=== PATIENT | female | born 1960 | race Caucasian/White ===

== ENCOUNTER 2017-04-04 07:46 | Day surgery (SDC) | payer BC ==
--- NOTE | 2017-03-21 09:24 | HP ---
DATE OF ADMISSION: 04/04/2017 HISTORY OF PRESENT ILLNESS: This is the 2nd orthopedic outpatient admission for surgery for this 56-year-old female who has been brought in with a painful left ankle. The patient had undergone a previous surgery of left fibular fracture with Roland isaias fixation. She has now developed increasing pain in and around the tip of the Roland isaias and being scheduled for removal of hardware. The patient has had pre-surgical x- rays which showed positive healing of the fracture and the procedure has been outlined to her. She understands procedure and has consented to it. ALLERGIES: No known drug allergies. PAST MEDICAL HISTORY: The patient currently has problems with increased cholesterol, high blood pressure. CURRENT MEDICATIONS: Include Zoloft, lisinopril, Lipitor, and omeprazole. PAST SURGICAL HISTORY: Positive with previous open reduction and internal fixation of left ankle fracture 07/21/2016. She has also had tonsil surgery, hernia surgery, breast surgery, and heart catheterization. She notes no anesthesia complications or problems. She has a negative bleeding history, negative blood clot history. SOCIAL HISTORY: She is a nonsmoker and nondrinker. PHYSICAL EXAMINATION: GENERAL: A well-developed, well-nourished, 56-year-old female in mild-to- moderate distress. HEAD, EYES, EARS, NOSE, AND THROAT: Normocephalic. NECK: Supple. CHEST: Clear. COR: Regular. ABDOMEN: Soft. : Intact. EXTREMITIES: Examination of the left ankle reveals positive healed surgical incision, left lateral malleolus area. Positive pain to palpation over the fixation Roland isaias tip. RADIOGRAPHIC STUDIES: X-ray reveals positive healed fracture of the distal left fibula with Roland isaias in place. PLAN: The patient is to undergo removal of hardware in left ankle. MMRUSSELL /[id number]
[~2017-04-04 07:46] MED LIST: Lidocaine 1%/Sod Bicarbonate in NS 8.4% 1 ML Syringe PRN; Sodium Chloride 0.9% 10 ML Syringe FLUSH PRN
[2017-04-04] MEDS: Lactated Ringers 1,000 ML IV SCH ×2 (08:15→09:57)
[2017-04-04] MEDS ORDERED: Propofol 200 MG/20 ML SDV ONE (08:24)
[2017-04-04] MEDS ORDERED: fentaNYL 250 MCG/5 ML SDV ONE (08:25)
[2017-04-04] MEDS ORDERED: Midazolam 1 MG/ML 2 ML SDV ONE (08:25)
[2017-04-04] MEDS ORDERED: Lidocaine 1% 30 ML SDV ONE (08:25)
--- NOTE | 2017-04-04 08:27 | PCM.PREANE ---
Preanesthetic Assessment - Procedure Proposed Procedure: L ankle hardware removal - Anesthesia/Transfusion/Family Hx Anesthesia History: Prior Anesthesia Without Reaction Family History of Anesthesia Reaction: No Transfusion History: No Prior Transfusion(s) Type of Transfusion Reactions: Reports: Unknown Intubation History: Unknown - Review of Systems General: No Symptoms Pulmonary: No Symptoms Cardiovascular: Other (HTN, HLD, ablation 2011 ) Gastrointestinal: Other (GERD if she doesnt take prilosec ) Neurological: No Symptoms Other: Reports: Depression - Physical Assessment NPO Status Date: 04/03/17 NPO Status Time: 22:30 O2 Sat by Pulse Oximetry: 98 Respiratory Rate: 16 Vital Signs: Last Vital Signs Temp 36.7 C 04/04/17 08:00 Pulse 72 04/04/17 08:00 Resp 16 04/04/17 08:00 BP 162/88 H 04/04/17 08:00 Pulse Ox 98 04/04/17 08:00 Height: 1.65 m Weight: 88.451 kg ASA Class: 2 Mental Status: Alert & Oriented x3 Airway Class: Mallampati = 2 Dentition: Reports: Normal Dentition Thyro-Mental Finger Breadths: 3 Mouth Opening Finger Breadths: 3 ROM/Head Extension: Full Lungs: Clear to Auscultation, Normal Respiratory Effort Cardiovascular: Regular Rate, Regular Rhythm - Allergies Allergies/Adverse Reactions: Allergies Allergy/AdvReac Type Severity Reaction Status Date / Time No Known Allergies Allergy Verified 04/03/17 12:14 - Blood Blood Available: No Product(s) Available: None - Anesthesia Plan Pre-Op Medication Ordered: None - Acknowledgements Anesthesia Type Planned: General Anesthesia Pt an Appropriate Candidate for the Planned Anesthesia: Yes Alternatives and Risks of Anesthesia Discussed w Pt/Guardian: Yes Pt/Guardian Understands and Agrees with Anesthesia Plan: Yes PreAnesthesia Questionnaire HEENT History: Reports: Impaired Vision Cardiovascular History: Reports: Arrhythmia, High Cholesterol, Hypertension Respiratory History: Reports: None Gastrointestinal History: Reports: GERD Genitourinary History: Reports: None DIRECTOR [employer] NURSING History: Reports: None Musculoskeletal History: Reports: None Neurological History: Reports: None Psychiatric History: Reports: Anxiety, Depression Endocrine/Metabolic History: Reports: None Hematologic History: Reports: None Immunologic History: Reports: None Oncologic (Cancer) History: Reports: None Dermatologic History: Reports: None - Past Surgical History Head Surgeries/Procedures: Reports: None HEENT Surgical History: Reports: Tonsillectomy Cardiovascular Surgical History: Reports: Other (See Below) Other Cardiovascular Surgeries/Procedures: cardiac ablation for SVT in 2012 Respiratory Surgical History: Reports: None GI Surgical History: Reports: Colonoscopy, Hernia, Inguinal, Hernia Repair/Other Female Surgical History: Reports: None Male Surgical History: Reports: None Endocrine Surgical History: Reports: None Neurological Surgical History: Reports: None Musculoskeletal Surgical History: Reports: Other (See Below) Other Musculoskeletal Surgeries/Procedures:: left fibula fracture with hardware Oncologic Surgical History: Reports: None Dermatological Surgical History: Reports: None - SUBSTANCE USE Smoking Status *Q: Never Smoker Tobacco Use Within Last Twelve Months: No Second Hand Smoke Exposure: No Recreational Drug Use History: No - HOME MEDS Home Medications: Home Meds Lisinopril 20 mg PO DAILY 07/19/16 [History] Omeprazole 20 mg PO DAILY 07/19/16 [History] Sertraline [Zoloft] 50 mg PO DAILY 07/19/16 [History] atorvaSTATin [Lipitor] 10 mg PO DAILY 07/19/16 [History] Docusate Sodium [Colace] 100 mg PO TID 04/03/17 [History] Triamcinolone Acetonide [Triamcinolone Acetonide 0.1% Crm] 1 applic TOP BID [History] - CURRENT (IN HOUSE) MEDS Current Meds: Current Medications Lactated Ringer's (Ringers, Lactated) 1,000 mls @ 125 mls/hr IV ASDIRECTED DILAN Stop: 04/04/17 23:00 Last Admin: 04/04/17 08:15 Dose: 125 mls/hr Lidocaine/Sodium Bicarbonate (Buffered Lidocaine 1% In Ns 8.4%) 0.25 ml .XX ONETIME PRN PRN Reason: Prior to IV Start Stop: 04/04/17 18:00 Last Admin: 04/04/17 08:14 Dose: 0.25 ml Sodium Chloride (Saline Flush) 10 ml FLUSH ASDIRECTED PRN PRN Reason: Keep Vein Open Stop: 04/04/17 18:00 Discontinued Medications Dexamethasone (Dexamethasone) Confirm Administered Dose 20 mg .ROUTE .STK-MED ONE Stop: 04/04/17 08:29 Fentanyl (Sublimaze) Confirm Administered Dose 250 mcg .ROUTE .STK-MED ONE Stop: 04/04/17 08:26 Lidocaine HCl (Xylocaine-Mpf 1%) Confirm Administered Dose 4 mls @ as directed .ROUTE .STK-MED ONE Stop: 04/04/17 08:29 Midazolam HCl (Versed 1 Mg/Ml) Confirm Administered Dose 2 mg .ROUTE .STK-MED ONE Stop: 04/04/17 08:26 Ondansetron HCl (Zofran) Confirm Administered Dose 4 mg .ROUTE .STK-MED ONE Stop: 04/04/17 08:29 Propofol (Diprivan 20 Ml) Confirm Administered Dose 200 mg .ROUTE .STK-MED ONE Stop: 04/04/17 08:25
[2017-04-04] MEDS ORDERED: Ondansetron 4 MG/2 ML SDV ONE (08:28)
[2017-04-04] MEDS ORDERED: Lidocaine 1% 4 ML ONE (08:28)
[2017-04-04] MEDS ORDERED: Dexamethasone 4 MG/ML 5 ML MDV ONE (08:28)
[2017-04-04] MEDS ORDERED: Acetaminophen/oxyCODONE 325-5 MG Tab PO PRN ×2 (08:46→10:33)
[2017-04-04] MEDS ORDERED: Ketorolac 15 MG/ML SDV IVPUSH PRN (08:46)
[2017-04-04] MEDS ORDERED: Ondansetron 4 MG/2 ML SDV IVPUSH PRN ×2 (08:46→09:19)
[2017-04-04] MEDS ORDERED: ceFAZolin 1 GM Vial ONE (08:50)
[2017-04-04] MEDS ORDERED: Ketamine 500 mg/10 ML MDV ONE (08:55)
[2017-04-04] MEDS ORDERED: Iodine/Sodium Iodide 2% Tincture 30 ML Bottle ONE (09:00)
[2017-04-04] MEDS ORDERED: Morphine 15 MG Tab.ER PO SCH (09:00)
[2017-04-04] MEDS ORDERED: HYDROmorphone 0.5 MG/0.5 ML Syringe IVPUSH PRN (09:19)
[2017-04-04] MEDS ORDERED: Meperidine PF 50 MG/ML Syringe IVPUSH PRN (09:19)
[2017-04-04] MEDS ORDERED: fentaNYL 100 MCG/2 ML SDV IVPUSH PRN (09:19)
--- NOTE | 2017-04-04 09:38 | PCM.POSTAN ---
POST ANESTHESIA ASSESSMENT - MENTAL STATUS Mental Status: Alert, Oriented - VITAL SIGNS Pulse Rate: 87 SaO2: 93 Resp Rate: 8 Blood Pressure: 151/71 Temperature: 36.3 C - RESPIRATORY Respiratory Status: Respiratory Rate WNL, Airway Patent, O2 Saturation Stable - CARDIOVASCULAR CV Status: Pulse Rate WNL, Blood Pressure Stable - GASTROINTESTINAL GI Status: No Symptoms - PAIN Pain Score: 0 - POST OP HYDRATION Hydration Status: Adequate & Stable
[2017-04-04 11:56] VITALS: BP 127/76
--- NOTE | 2017-04-04 14:37 | OR ---
DATE OF OPERATION: 04/04/2017 SURGEON: Terrance Polo MD PREOPERATIVE DIAGNOSIS: Status post fracture of left ankle fibula with Roland isaias fixation. POSTOPERATIVE DIAGNOSIS: Status post fracture of left ankle fibula with Roland isaias fixation. ANESTHESIA: General. OPERATION PERFORMED: Removal of Roland isaias, left fibula. DESCRIPTION OF PROCEDURE: The patient was taken to the operative room in a supine position. She was placed under a general anesthesia. The left leg was then prepped and draped by standard technique. After prepping and draping, the operation then proceeded with evaluation of the lateral aspect of the left ankle and palpation of the skin and probing with an 18-gauge needle to identify the end of the Roland isaias in the fibula. Once that was identified, the operation then proceeded with an incision being placed approximately 2 cm in length over the area of Roland isaias fixation, penetrating through the skin and subcutaneous tissues. These were bluntly dissected down to the tip of the fibula. Then, re-probing with the 18- gauge needle, the isaias was identified and further dissection was carried out with 11 blade, exposing the Roland isaias itself. Once exposed, the operation proceeded with the hemostat and very gently, the hemostat was placed under the hook end of the Roland isaias and then gently manipulated out of this position in the fibula. Once it was pressured to be brought down distally, it was then removed in one fashion from the fibula itself. The area was then thoroughly irrigated. Deep tissues were closed with 2-0 Vicryl and skin with 4-0 Prolene. The patient was placed in standard dressings. She tolerated this procedure well and left the operating room in a stable condition to her room for recovery. ESTIMATED BLOOD LOSS: MMODAL /[id number]
== END 2017-04-04 11:45 | disposition home or self-care (01) ==
LOC: JD.SDS 07:46
PROVIDERS: ATTEND Specialist
DX: T84.84XA Pain due to internal orthopedic prosthetic devices, implants and grafts, initial encounter (principal); E78.00 Pure hypercholesterolemia, unspecified; I10 Essential (primary) hypertension; F32.9 Major depressive disorder, single episode, unspecified; F41.9 Anxiety disorder, unspecified; K21.9 Gastro-esophageal reflux disease without esophagitis; Z79.899 Other long term (current) drug therapy; Z98.890 Other specified postprocedural states; Z90.89 Acquired absence of other organs
CPT/HCPCS: 20680; A9270; J0690; J1100; J1885; J2250; J2405; J3010; J7120; 01462; J2704

== ENCOUNTER 2021-01-25 10:58 | Day surgery (SDC) | payer BC ==
[2021-01-25] MEDS ORDERED: Propofol 200 MG/20 ML SDV ONE ×2 (11:40→13:50)
[2021-01-25] MEDS ORDERED: Lidocaine 1%/Sod Bicarbonate in NS 8.4% 1 ML Syringe IDERM PRN (11:46)
[2021-01-25] MEDS ORDERED: Sodium Chloride 0.9% 10 ML Syringe FLUSH PRN (11:46)
[2021-01-25] MEDS ORDERED: Midazolam 1 MG/ML 2 ML SDV ONE (11:56)
[2021-01-25] MEDS ORDERED: fentaNYL 100 MCG/2 ML SDV ONE (11:56)
[2021-01-25] MEDS ORDERED: Lactated Ringers 1,000 ML IV SCH (12:00)
--- NOTE | 2021-01-25 12:06 | PCM.PREANE ---
Preanesthetic Assessment - Procedure Proposed Procedure: Right trigger finger release - Anesthesia/Transfusion/Family Hx Anesthesia History: Prior Anesthesia Without Reaction Transfusion History: No Prior Transfusion(s) Type of Transfusion Reactions: Reports: Unknown Intubation History: Unknown - Review of Systems General: No Symptoms Pulmonary: No Symptoms Cardiovascular: No Symptoms Gastrointestinal: No Symptoms Neurological: Numbness ("at times in trigger finger") Other: Reports: None - Physical Assessment NPO Status Date: 01/24/21 NPO Status Time: 00:00 Vital Signs: Last Vital Signs Temp 36.9 C 01/25/21 11:00 Pulse 68 01/25/21 11:00 Resp 16 01/25/21 11:00 BP 138/83 01/25/21 11:00 Pulse Ox 95 01/25/21 11:00 Height: 1.63 m Weight: 80.286 kg ASA Class: 2 Mental Status: Alert & Oriented x3 Airway Class: Mallampati = 2 Dentition: Reports: Cumby(s) Thyro-Mental Finger Breadths: 2 Mouth Opening Finger Breadths: 2 ROM/Head Extension: Full Lungs: Clear to Auscultation, Normal Respiratory Effort Cardiovascular: Regular Rate, Irregular Rhythm (sinus arrhythmia) - Allergies Allergies/Adverse Reactions: Allergies Allergy/AdvReac Type Severity Reaction Status Date / Time No Known Allergies Allergy Verified 01/22/21 11:56 - Blood Blood Available: No Product(s) Available: None - Anesthesia Plan Pre-Op Medication Ordered: None - Acknowledgements Anesthesia Type Planned: MAC Pt an Appropriate Candidate for the Planned Anesthesia: Yes Alternatives and Risks of Anesthesia Discussed w Pt/Guardian: Yes Pt/Guardian Understands and Agrees with Anesthesia Plan: Yes PreAnesthesia Questionnaire HEENT History: Reports: Impaired Vision Cardiovascular History: Reports: Arrhythmia, High Cholesterol, Hypertension Respiratory History: Reports: None Gastrointestinal History: Reports: GERD Genitourinary History: Reports: None NATURAL DEVELOPER History: Reports: None Musculoskeletal History: Reports: None Neurological History: Reports: None Psychiatric History: Reports: Anxiety, Depression Endocrine/Metabolic History: Reports: None Hematologic History: Reports: None Immunologic History: Reports: None Oncologic (Cancer) History: Reports: None Dermatologic History: Reports: None - Past Surgical History Head Surgeries/Procedures: Reports: None HEENT Surgical History: Reports: Tonsillectomy Cardiovascular Surgical History: Reports: Other (See Below) Other Cardiovascular Surgeries/Procedures: cardiac ablation for SVT in 2012 Respiratory Surgical History: Reports: None GI Surgical History: Reports: Colonoscopy, Hernia, Inguinal, Hernia Repair/Other Female Surgical History: Reports: None Male Surgical History: Reports: None Endocrine Surgical History: Reports: None Neurological Surgical History: Reports: None Musculoskeletal Surgical History: Reports: Other (See Below) Other Musculoskeletal Surgeries/Procedures:: left fibula fracture with hardware Oncologic Surgical History: Reports: None Dermatological Surgical History: Reports: None - SUBSTANCE USE Tobacco Use Status *Q: Never Tobacco User Tobacco Use Within Last Twelve Months: Cigarettes Second Hand Smoke Exposure: No Days Per Week of Alcohol Use: 2 Number of Drinks Per Day: 1 Total Drinks Per Week: 2 Recreational Drug Use History: No - HOME MEDS Home Medications: Home Meds Lisinopril 20 mg PO DAILY 07/19/16 [History] Omeprazole 20 mg PO DAILY 07/19/16 [History] Sertraline [Zoloft] 50 mg PO DAILY 07/19/16 [History] atorvaSTATin [Lipitor] 10 mg PO DAILY 07/19/16 [History] Docusate Sodium [Colace] 100 mg PO TID 04/03/17 [History] Triamcinolone Acetonide [Triamcinolone Acetonide 0.1% Crm] 1 applic TOP BID 04/03/17 [History] Hydrocodone/Acetaminophen [HYDROcodone-Acetaminophen 5-325 MG] 1 each PO Q6H PRN #4 tablet 01/24/21 [Rx] - CURRENT (IN HOUSE) MEDS Current Meds: Current Medications Lactated Ringer's (Ringers, Lactated) 1,000 mls @ 125 mls/hr IV ASDIRECTED DILAN Stop: 01/25/21 23:00 Lidocaine/Sodium Bicarbonate (Lidocaine 1%/Sod Bicarbonate In Ns 8.4% 1 Ml Syringe) 0.25 ml IDERM ONETIME PRN PRN Reason: Prior to IV Start Stop: 01/25/21 18:00 Sodium Chloride (Sodium Chloride 0.9% 10 Ml Syringe) 10 ml FLUSH ASDIRECTED PRN PRN Reason: Keep Vein Open Stop: 01/25/21 18:00 Discontinued Medications Fentanyl (Fentanyl 100 Mcg/2 Ml Sdv) Confirm Administered Dose 100 mcg .ROUTE .STK-MED ONE Stop: 01/25/21 11:57 Midazolam HCl (Midazolam 1 Mg/Ml 2 Ml Sdv) Confirm Administered Dose 2 mg .ROUTE .STK-MED ONE Stop: 01/25/21 11:57 Propofol (Propofol 200 Mg/20 Ml Sdv) Confirm Administered Dose 200 mg .ROUTE .STK-MED ONE Stop: 01/25/21 11:41
[2021-01-25] MEDS ORDERED: Bupivacaine 0.25% 10 ML SDV ONE (12:16)
[2021-01-25] MEDS ORDERED: Lidocaine 1% 30 ML SDV ONE (12:16)
[2021-01-25] MEDS ORDERED: fentaNYL 100 MCG/2 ML SDV IVPUSH PRN (14:16)
--- NOTE | 2021-01-25 14:16 | PCM48HPAN ---
Post Anesthesia Note - EVALUATION WITHIN 48HRS OF ANESTHETIC Vital Signs in Normal Range: Yes Patient Participated in Evaluation: Yes Respiratory Function Stable: Yes Airway Patent: Yes Cardiovascular Function Stable: Yes Hydration Status Stable: Yes Pain Control Satisfactory: Yes Nausea and Vomiting Control Satisfactory: Yes Mental Status Recovered: Yes Vital Signs: Last Vital Signs Temp 36.9 C 01/25/21 11:00 Pulse 68 01/25/21 11:00 Resp 16 01/25/21 11:00 BP 138/83 01/25/21 11:00 Pulse Ox 95 01/25/21 11:00
[2021-01-25] MEDS ORDERED: Acetaminophen/HYDROcodone 325-5 MG Tab PO SCH (15:44)
[2021-01-25 16:58] VITALS: BP 145/92; PULSE 57
--- NOTE | 2021-02-02 07:42 | PCM.OPNOTE ---
- General Post-Op/Procedure Note Date of Surgery/Procedure: 01/25/21 Operative Procedure(s): right ring finger a1 rj release Pre Op Diagnosis: right ring finger stenosing tenosynovitis Post-Op Diagnosis: Same Anesthesia Technique: Local, MAC Primary Surgeon: John Mims Anesthesia Provider: Ana Echavarria Senior Visual Designer: Dolores Pittman EBL in mLs: 5 Complications: None Condition: Good
--- NOTE | 2021-02-02 08:54 | OR ---
DATE OF OPERATION: 01/25/2021 SURGEON: John Mims MD OPERATION PERFORMED: Right ring finger A1 rj release. PREOPERATIVE DIAGNOSIS: Right ring finger stenosing tenosynovitis. POSTOPERATIVE DIAGNOSIS: Right ring finger stenosing tenosynovitis. ANESTHESIA: Local MAC. ANESTHESIA PROVIDER: . LACQUER POLISHER: Dolores Pittman PA-C. ESTIMATED BLOOD LOSS: Less than 5 mL. COMPLICATIONS: None. CONDITION: Stable. DESCRIPTION OF PROCEDURE: The patient was identified in the preoperative holding area. Proper site was marked and identified by the surgeon. The patient was taken back to the operating theater, where after adequate anesthesia, the patient's right upper extremity was sterilely prepped and draped in the usual sterile fashion. OR time-out was performed. The patient received 2 g IV Ancef. At this time, right upper extremity was exsanguinated and Esmarch was used as tourniquet on the forearm. 1% lidocaine without epinephrine and 0.25% Marcaine without epinephrine were used, anesthetize the incisional site over the right ring finger. A transverse incision was made. Blunt dissection was taken down to the A1 rj. Ragnell retractors protected the neurovascular bundles. A [place] blade was then used to resect the A1 rj both proximally and distally. The tendon was brought through and there was no tendinous adhesions. The patient was had free range of motion as it was stuck beforehand in a flexed position. Adequate saline was irrigated through the wound. A 4-0 nylon suture was used for closure of the skin. The patient tolerated the procedure well and was sent to PACU in stable condition. MMODAL /[id number]
== END 2021-01-25 16:00 | disposition home or self-care (01) ==
LOC: JD.SDS 10:58
PROVIDERS: ATTEND Orthopaedic Surgery
DX: M65.341 Trigger finger, right ring finger (principal); M65.841 Other synovitis and tenosynovitis, right hand; I10 Essential (primary) hypertension; E78.00 Pure hypercholesterolemia, unspecified; Z79.899 Other long term (current) drug therapy
CPT/HCPCS: 26055; A9270; J2250; J2704; J3010; J3490; J7120; 01810

== ENCOUNTER 2021-05-25 07:33 | Day surgery (SDC) | payer BC ==
[~2021-05-25 07:33] MED LIST changes: +Lactated Ringers 1,000 ML IV SCH; +Lidocaine 1% with EPINEPHrine 1:100,000 20 ML MDV ONE; +Lidocaine 1%/Sod Bicarbonate in NS 8.4% 1 ML Syringe IDERM PRN; -Lidocaine 1%/Sod Bicarbonate in NS 8.4% 1 ML Syringe PRN; +Sodium Chloride 0.9% 50 ML SDV ONE
--- NOTE | 2021-05-25 07:35 | PCM.PREANE ---
Preanesthetic Assessment - Anesthesia/Transfusion/Family Hx Anesthesia History: Prior Anesthesia Without Reaction Transfusion History: No Prior Transfusion(s) Type of Transfusion Reactions: Reports: Unknown Intubation History: Unknown - Review of Systems General: No Symptoms Pulmonary: No Symptoms Cardiovascular: No Symptoms Gastrointestinal: No Symptoms Neurological: No Symptoms Other: Reports: None - Physical Assessment NPO Status Date: 05/24/21 NPO Status Time: 02:10 Vital Signs: 136/98 55 96% RA ASA Class: 2 Mental Status: Alert & Oriented x3 Airway Class: Mallampati = 3 Dentition: Reports: Normal Dentition Thyro-Mental Finger Breadths: 3 Mouth Opening Finger Breadths: 3 (TMJ on left side) ROM/Head Extension: Full Lungs: Clear to Auscultation, Normal Respiratory Effort Cardiovascular: Regular Rate, Regular Rhythm - Allergies Allergies/Adverse Reactions: Allergies Allergy/AdvReac Type Severity Reaction Status Date / Time No Known Allergies Allergy Verified 01/22/21 11:56 - Acknowledgements Anesthesia Type Planned: General Anesthesia Pt an Appropriate Candidate for the Planned Anesthesia: Yes Alternatives and Risks of Anesthesia Discussed w Pt/Guardian: Yes Pt/Guardian Understands and Agrees with Anesthesia Plan: Yes PreAnesthesia Questionnaire HEENT History: Reports: Impaired Vision Cardiovascular History: Reports: Arrhythmia, High Cholesterol, Hypertension Respiratory History: Reports: None Gastrointestinal History: Reports: GERD Genitourinary History: Reports: None TRANSFORMATION LEAD History: Reports: None Musculoskeletal History: Reports: None Neurological History: Reports: None Psychiatric History: Reports: Anxiety, Depression Endocrine/Metabolic History: Reports: None Hematologic History: Reports: None Immunologic History: Reports: None Oncologic (Cancer) History: Reports: None Dermatologic History: Reports: None - Past Surgical History Head Surgeries/Procedures: Reports: None HEENT Surgical History: Reports: Tonsillectomy Cardiovascular Surgical History: Reports: Other (See Below) Other Cardiovascular Surgeries/Procedures: cardiac ablation for SVT in 2011 Respiratory Surgical History: Reports: None GI Surgical History: Reports: Colonoscopy, Hernia, Inguinal, Hernia Repair/Other Female Surgical History: Reports: None Male Surgical History: Reports: None Endocrine Surgical History: Reports: None Neurological Surgical History: Reports: None Musculoskeletal Surgical History: Reports: Other (See Below) Other Musculoskeletal Surgeries/Procedures:: left fibula fracture with hardware Oncologic Surgical History: Reports: None Dermatological Surgical History: Reports: None - HOME MEDS Home Medications: Home Meds Lisinopril 20 mg PO DAILY 07/19/16 [History] Omeprazole 20 mg PO DAILY 07/19/16 [History] Sertraline [Zoloft] 50 mg PO DAILY 07/19/16 [History] atorvaSTATin [Lipitor] 10 mg PO DAILY 07/19/16 [History] Docusate Sodium [Colace] 100 mg PO TID 04/03/17 [History] Triamcinolone Acetonide [Triamcinolone Acetonide 0.1% Crm] 1 applic TOP BID 04/03/17 [History] Hydrocodone/Acetaminophen [HYDROcodone-Acetaminophen 5-325 MG] 1 each PO Q6H PRN #4 tablet 01/24/21 [Rx] - CURRENT (IN HOUSE) MEDS Current Meds: Current Medications Lactated Ringer's (Ringers, Lactated) 1,000 mls @ 125 mls/hr IV ASDIRECTED DILAN Lidocaine/Sodium Bicarbonate (Lidocaine 1%/Sod Bicarbonate In Ns 8.4% 1 Ml Syringe) 0.25 ml IDERM ONETIME PRN PRN Reason: Prior to IV Start Sodium Chloride (Sodium Chloride 0.9% 10 Ml Syringe) 10 ml FLUSH ASDIRECTED PRN PRN Reason: Keep Vein Open
[2021-05-25] MEDS ORDERED: Rocuronium 50 MG/5 ML Vial ONE (07:41)
[2021-05-25] MEDS ORDERED: Propofol 200 MG/20 ML SDV ONE (07:41)
[2021-05-25] MEDS ORDERED: Midazolam 1 MG/ML 2 ML SDV ONE (07:41)
[2021-05-25] MEDS ORDERED: fentaNYL 250 MCG/5 ML SDV ONE (07:42)
[2021-05-25] MEDS ORDERED: Dexamethasone 4 MG/ML 5 ML MDV ONE (07:42)
[2021-05-25] MEDS ORDERED: Ketorolac 30 MG/ML SDV ONE (07:42)
[2021-05-25] MEDS ORDERED: Ondansetron 4 MG/2 ML SDV ONE (07:42)
[2021-05-25] MEDS ORDERED: Lidocaine 1% 4 ML ONE ×2 (07:44→08:13)
[2021-05-25] MEDS ORDERED: ceFAZolin 1 GM Vial ONE (07:48)
[2021-05-25] MEDS ORDERED: Lactated Ringers 1,000 ML ONE (08:16)
[2021-05-25] MEDS ORDERED: Acetaminophen/oxyCODONE 325-5 MG Tab PO PRN (10:07)
[2021-05-25] MEDS ORDERED: Ondansetron 4 MG/2 ML SDV IVPUSH PRN (10:09)
--- NOTE | 2021-05-25 10:18 | PCM.OPNOTE ---
- General Post-Op/Procedure Note Date of Surgery/Procedure: 05/25/21 Operative Procedure(s): Total vaginal hysterectomy with bilateral salpingo- oophorectomy, anterior vaginal repair, posterior vaginal repair with perineoplasty, subfascial mid urethral sling. Findings: Grade 3 cystocele, grade 2 rectocele, grade 1-2 uterine descensus, clinical findings of stress urinary incontinence demonstrated in clinic. Pre Op Diagnosis: 1. Female cystocele. 2. Female rectocele. 3. Uterine prolapse. 4. Stress urinary incontinence Post-Op Diagnosis: Same Anesthesia Technique: General ET Tube Other Anesthesia Type: Lidocaine quarter percent with epinephrineapproximately 35 cc total Primary Surgeon: Bernardo Martinez Secondary Surgeon: Kimmy Colin Anesthesia Provider: Harley Beyer Hat Sprayer: Estrella Herndon Reason Hat Sprayer Was Necessary: Assistance, retraction, patient safety, quality of care. Pathology: Uterus, bilateral fallopian tubes, bilateral ovaries and one specimen container. Fluid Replacement, Intraop: 2,000 Output, Urine Amount: 200 EBL in mLs: 30 Drain/Tube Comments:: Red rubber catheter used to drain the bladder prior to the procedure and to fill the bladder after the procedure. Complications: None Condition: Good Free Text/Narrative:: Surgery duration: 86 minutes Procedure: The patient was placed in supine position on the operating table. General endotracheal anesthesia was accomplished. After positioning, and adequate prep and drape, the procedure was then performed. Sterile speculum was placed in the vagina and cervix was visualized. Cervix was injected with lidocaine quarter percent with epinephrine-20 mL used. A full circumference incision was made in the cervical epithelium. The bladder was pushed well back off cervix. Posterior cul-de-sac was then entered sharply without problems. Left uterosacral was crossclamped with a Enseal vessel closure system. The left uterosacral and then the right uterosacral ligament pedicles were developed using the Enseal system. The anterior cul-de-sac was then entered without proble ms and the uterine vasculature, cardinal ligament and broad ligament then developed using Enseal vessel closure system. The uterus was inverted at this time and upper broad ligament fallopian tube pedicles were crossclamped with Pamella clamps. Specimen was totally removed. Both these pedicles were then secured with Enseal vessel closure system. Left and right fallopian tube was normal in appearance.. Using Enseal vessel closure system each of the bilateral tubes and ovaries were then removed and sent with the specimen. The patient was found to be hemostatically intact at this time. Vaginal cuff was sutured for hemostatic reasons with a running locked suture of 0 Monocryl from the 2 o'clock position to the 10 o'clock position posteriorly. Vaginal cuff was then closed from right to left side with a running locked suture of 0 Monocryl. Subfascial mid urethral sling was then performed. The patient's bladder was again drained with a red rubber catheter. 200 cc of normal urine were removed. The epithelium overlying the urethra was grasped approximately 1 cm from the urethral meatus and approximately 2 cm cephalad from there with Allis clamps. The area of the skin overlying the medial aspect of the obturator foramen on each side just posterior to the origin the abductor longus muscle was marked with a marking pen. These 2 areas and the sub-fascial layer of the vaginal were then infiltrated with lidocaine quarter percent with epinephrinetotal of approximately 10 mL was used. incisions made in the epithelium overlying the urethra and 2 small stab wounds 3 mm in length were made in the 2 areas of the panty line of the patient. The subfascial planes were adequately dissected bilaterally to allow placement of the mesh. The helical adapter was then placed through the obturator on patient's left side, then brought out through the vaginal subfascial plane. Mesh was attached to it and then was pulled back through the obturator foramen. Same was done on the right side. Mesh was then snugged up to Dilator 15 mm in diameter which was was used as a spacer to place the mesh in a tension-free position. At this point the mesh was cut off at the skin surface and the dilator was removed. The midline epithelium was closed with a short running suture of 3- 0 Monocryl. Skin incisions were closed with Dermabond skin glue. Rectocele repair was then undertaken. The uppermost portion of the rectocele was identified and was grasped midline with an Allis clamp. The introital area was grasped at approximately the 4:00 and 8:00 positions at the junction of the vaginal and vulvar epithelium. The area of epithelium was then infiltrated with lidocaine quarter percent with epinephrine. A alberto-shaped piece of epithelium was removed from the posterior introital and perineal area. The vaginal epithelium was then undermined superiorly to the top of the rectocele. Was then incised midline. With sharp and blunt dissection the epithelium was then dissected off of the underlying vesicovaginal fascia. At this point approximately 5 sutures of 0 Monocryl were placed to reapproximate the lateral supportive tissue midline and reduce the rectocele. The excess epithelium was then excised and the epithelium overlying the rectocele repair was then reapproximated with a running suture of 3-0 Monocryl. Perineoplasty was then performed with approximately 3 V-shaped stitches of 0 Mo nocryl in placed to reapproximate the lateral tissue midline, rebuild the perineum about 1 cm and the vagina approximately 1 cm. The epithelium of the introitus and perineal body was then reapproximated using 3-0 Monocryl in an episiotomy repair fashion. At this time sponge, instrument and needle counts were correct. The stab wounds used for placement of the sub fascial mid urethral mesh were th en closed with Dermabond skin glue. The bladder was filled with 250 cc of sterile water to facilitate voiding and therefore, discharge home. The patient was returned to supine position and was discharged from the operating room in good condition. Patient was returned to supine position and awakened from general endotracheal anesthesia. She tolerated the procedure and left the operating room in satisfactory condition.
--- NOTE | 2021-05-25 10:22 | PCM.POSTAN ---
POST ANESTHESIA ASSESSMENT - MENTAL STATUS Mental Status: Somnolent - VITAL SIGNS Vital Signs: Last Vital Signs Temp 97.3 F 05/25/21 10:06 Pulse 55 L 05/25/21 07:07 Resp 12 05/25/21 10:06 BP 136/64 05/25/21 10:06 Pulse Ox 97 05/25/21 10:06 - RESPIRATORY Respiratory Status: Respiratory Rate WNL, Airway Patent, O2 Saturation Stable, Supplemental Oxygen - CARDIOVASCULAR CV Status: Pulse Rate WNL, Blood Pressure Stable - GASTROINTESTINAL GI Status: No Symptoms - PAIN Pain Score: 0 - POST OP HYDRATION Hydration Status: Adequate & Stable
[2021-05-25] MEDS ORDERED: Ibuprofen 600 MG Tab PO PRN (13:45)
[2021-05-25 13:48] VITALS: BP 121/89; PULSE 68
--- NOTE | 2021-05-25 15:52 | PCM48HPAN ---
Post Anesthesia Note - EVALUATION WITHIN 48HRS OF ANESTHETIC Vital Signs in Normal Range: Yes Patient Participated in Evaluation: Yes Respiratory Function Stable: Yes Airway Patent: Yes Cardiovascular Function Stable: Yes Hydration Status Stable: Yes Pain Control Satisfactory: Yes Nausea and Vomiting Control Satisfactory: Yes Mental Status Recovered: Yes Vital Signs: Last Vital Signs Temp 98.6 F 05/25/21 12:50 Pulse 68 05/25/21 12:50 Resp 14 05/25/21 12:50 BP 121/89 05/25/21 12:50 Pulse Ox 96 05/25/21 12:50 - COMMENTS/OBSERVATIONS Free Text/Narrative:: Preparing for home discharge
== END 2021-05-25 13:05 | disposition home or self-care (01) ==
LOC: JD.SDS 07:33
PROVIDERS: ATTEND Obstetrics & Gynecology
DX: D25.9 Leiomyoma of uterus, unspecified (principal); N84.1 Polyp of cervix uteri; N81.4 Uterovaginal prolapse, unspecified; N39.3 Stress incontinence (female) (male); N84.0 Polyp of corpus uteri; N80.0 Endometriosis of uterus; N83.311 Acquired atrophy of right ovary; N83.8 Other noninflammatory disorders of ovary, fallopian tube and broad ligament; I10 Essential (primary) hypertension; E78.00 Pure hypercholesterolemia, unspecified; Z79.899 Other long term (current) drug therapy; Z98.890 Other specified postprocedural states; N81.6 Rectocele
CPT/HCPCS: 00944; A9270-GY; C1771; J0690; J1100; J1885; J2250; J2405; J2704; J3010; J7120